=== PATIENT | male | born 1980 | race Caucasian/White ===

== ENCOUNTER 2024-03-06 15:39 | Emergency (ER) | payer OTHER, SELFPAY ==
[2024-03-06 15:42] VITALS: BP 154/77; PULSE 86; TEMP 36.8; O2SAT 99; BMI 31.6
--- NOTE | 2024-03-06 15:51 | ED_ITS ---
HPI - Skin/Abscess/Foreign Bdy General Chief complaint: Skin/Abscess/Foreign Body Stated complaint: Spider bite Time Seen by Provider: 03/06/24 15:47 Source: patient Mode of arrival: walk-in History of Present Illness HPI narrative: 43 year old male presents to the ED for an erythematous, raised, painful area to his left abdomen. Onset was 03/02/24. States it initially appeared as a small pimple or ingrown hair. Reports picking at the area. He developed increased pressure with a larger area of erythema yesterday. States today the center of the area became discolored and more painful. Denies feverr, chills, weakness. He is accompanied by family. Related Data Previous Rx's ?Medication ?Instructions ?Recorded cephalexin 500 mg capsule 500 mg PO Q6H 10 days #40 caps 03/06/24 doxycycline monohydrate 100 mg 100 mg PO BID 10 days #20 caps 03/06/24 capsule hydrocodone 5 mg-acetaminophen 325 1 tab PO Q6H PRN pain 2 days #8 03/06/24 mg tablet tabs Allergies Allergy/AdvReac Type Severity Reaction Status Date / Time No Known Drug Allergies Allergy Verified 03/06/24 15:45 Review of Systems ROS Constitutional Denies: fever or chills Cardiovascular Denies: chest pain Respiratory Denies: shortness of breath Gastrointestinal Denies: vomiting Integumentary/Breast Reports: redness, skin pain, skin tenderness, skin swelling and sores Neurological Denies: weakness in extremities Exam Constitutional Vital Signs, click to edit/add: Last Vital Signs Temp 98.2 F 03/06/24 15:42 Pulse 86 03/06/24 15:42 Resp 18 03/06/24 15:42 BP 154/77 H 03/06/24 15:42 Pulse Ox 99 03/06/24 15:42 O2 Del Method Room Air 03/06/24 15:42 Common normals: oriented x3 and alert General appearance: cooperative; not ill appearing Eye Common normals: conjunctivae normal and no scleral icterus Neck & C-Spine Common normals: supple Chest Chest: symmetrical chest wall rise Respiratory Common normals: normal respiratory effort Effort & inspection: able to speak in complete sentences Cardio Common normals: regular rate GI Other: Erythematous, firm, raised area to left abdomen. Center of the area is white with black area in very center. I and D indicated. Area tender. Neuro Common normals: oriented x3 Sensorium/orientation: awake and alert Speech: speech normal Gait (neuro): normal gait Course Vital Signs Vital signs: Vital Signs Temperature 98.2 F 03/06/24 15:42 Pulse Rate 86 03/06/24 15:42 Respiratory Rate 18 03/06/24 15:42 Blood Pressure 154/77 H 03/06/24 15:42 Pulse Oximetry 99 03/06/24 15:42 Oxygen Delivery Method Room Air 03/06/24 15:42 Temperature 98.2 F 03/06/24 15:42 Pulse Rate 86 03/06/24 15:42 Respiratory Rate 18 03/06/24 15:42 Blood Pressure 154/77 H 03/06/24 15:42 Pulse Oximetry 99 03/06/24 15:42 Oxygen Delivery Method Room Air 03/06/24 15:42 MDM - Skin/Abscess/Foreign Bdy MDM Narrative Medical decision making narrative: I and D was completed. LET was initially applied to the area and he was given Percocet prior to the procedure. He tolerated the procedure well. A dressing was applied. Packing removal in 24 hours. OARRS was reviewed. Prescriptions were provided for Doxycycline, Keflex, and [place]. Follow up with pcp for a recheck, further evaluation and treatment. Return precautions were discussed. Warm, moist compresses were discussed. He was discharged to family. Differential Diagnosis Differential diagnosis: Likely abscess of skin or subcutaneous tissue and cellulitis Medical Records Attestation: I reviewed the patient's medical records. Discharge Plan Discharge Stand Alone Forms: Portal Instructions Chief Complaint: Skin/Abscess/Foreign Body Clinical Impression: Abscess of skin or subcutaneous tissue Patient Disposition: Home, Self-Care Time of Disposition Decision: 17:12 Condition: Good Mode of Transportation: Private Vehicle Prescriptions / Home Meds: New doxycycline monohydrate 100 mg capsule 100 mg PO BID 10 Days Qty: 20 0RF cephalexin 500 mg capsule 500 mg PO Q6H 10 Days Qty: 40 0RF hydrocodone-acetaminophen 5-325 mg tablet 1 tab PO Q6H PRN (Reason: pain) 2 Days Qty: 8 0RF Print Language: Slovenian Instructions: Abscess (ED), Abscess Incision and Drainage (DC) Additional Instructions: Return to the ER for new or worsening symptoms. The packing needs to be removed in 24 hours. You may return to the ER for removal. If you feel comfortable you may remove the packing at home. Take the antibiotics as directed to completion. Apply warm, moist compresses as discussed. Referrals: Physician,Non-Staff, MD [Primary Care Provider] - 1 week Discharge Date/Time: 03/06/24 17:46 Procedures ED ID Incision & Drainage I&D Type: abcess Abscess Simple/Multiple: simple/single Site: abdomen Side (if applicable): left Sedation/analgesia: none Anesthetic used: without epi Technique: incised with #11 blade Amount of fluid (mL): 3 Irrigation: Yes Packing used: iodoform
[2024-03-06] MEDS: OXYCODONE HCL/ACETAMINOPHEN 5MG/325MG 1 TAB PO (16:03)
[2024-03-06] MEDS: LIDOCAINE/EPINEPHRINE/TETRACAINE 3 ML GEL.PF.APP TOPICAL (16:03)
[2024-03-06] MEDS: LIDOCAINE HCL 1% 100 MG/10 ML MDV INJ (16:03)
[2024-03-06] MEDS: CEPHALEXIN 500 MG CAPSULE PO (17:27)
[2024-03-06] MEDS: DOXYCYCLINE MONOHYDRATE 100 MG CAPSULE PO (17:27)
== END 2024-03-06 17:46 | disposition home or self-care (01) ==
PROVIDERS: Emergency Provider Emergency Medicine
DX: L02.211 Cutaneous abscess of abdominal wall (principal); B95.62 Methicillin resistant Staphylococcus aureus infection as the cause of diseases classified elsewhere
CPT/HCPCS: 10060; 87070; 87150; 87186; 99284

== ENCOUNTER 2024-04-22 18:47 | Emergency (ER) | payer OTHER, SELFPAY ==
[2024-04-22 19:03] VITALS: BP 160/90; PULSE 69; O2SAT 99; BMI 33.0
[2024-04-22 19:17] VITALS: TEMP 36.6
[2024-04-22] MEDS: LIDOCAINE HCL 1% 100 MG/10 ML MDV INJ (20:31)
--- NOTE | 2024-04-22 20:32 | ED_ITS ---
HPI - Skin/Abscess/Foreign Bdy General Chief complaint: Skin/Abscess/Foreign Body Stated complaint: Lump Time Seen by Provider: 04/22/24 20:03 Source: patient Mode of arrival: walk-in Limitations: no limitations History of Present Illness HPI narrative: 43-year-old male presents to the emergency department for a chief complaint of painful raised red area on the right side of his abdomen. He had a similar finding of about a month ago and it had to be incised and drained. This 1 is not as large and it started 2 days ago. He popped it and a small amount of pus came out. Related Data Previous Rx's ?Medication ?Instructions ?Recorded cephalexin 500 mg capsule 500 mg PO QID 10 days #40 caps 04/22/24 hydrocodone 5 mg-acetaminophen 325 1 tab PO Q6H PRN pain 4 days #14 04/22/24 mg tablet tabs sulfamethoxazole 800 1 tab PO BID 10 days #20 tabs 04/22/24 mg-trimethoprim 160 mg tablet (Bactrim DS) Allergies Allergy/AdvReac Type Severity Reaction Status Date / Time No Known Drug Allergies Allergy Verified 04/22/24 19:08 Review of Systems ROS Narrative A ten point review of systems is negative except as noted above. Exam Narrative Exam Narrative: Nurses note and vital signs reviewed and patient is not hypoxic. General: The patient appears well and in no apparent distress. Patient is resting comfortably on cart. Skin: Warm, dry, no pallor noted. There is no rash noted. Head: Normocephalic, atraumatic Eye: Normal conjunctiva, no drainage Ears, Nose, Mouth, and Throat: oral mucosa is moist. Nares patent. Cardiovascular: Regular Rate and Rhythm Respiratory: Patient is in no distress, no accessory muscle use GI: On the right side of the abdomen is an erythematous area which is quite firm and is approximately 2 inches x 1 inches in diameter. At the center is a raised white area. Musculoskeletal: No joint swelling Neurological: Awake and alert Psychiatric: Cooperative Constitutional Vital Signs, click to edit/add: Last Vital Signs Temp 98 F 04/22/24 19:17 Pulse 69 04/22/24 19:03 Resp 18 04/22/24 19:03 BP 160/90 H 04/22/24 19:03 Pulse Ox 99 04/22/24 19:03 O2 Del Method Room Air 04/22/24 19:03 Course Vital Signs Vital signs: Vital Signs Pulse Rate 69 04/22/24 19:03 Respiratory Rate 18 04/22/24 19:03 Blood Pressure 160/90 H 04/22/24 19:03 Pulse Oximetry 99 04/22/24 19:03 Oxygen Delivery Method Room Air 04/22/24 19:03 Temperature 98 F 04/22/24 19:17 Pulse Rate 69 04/22/24 19:03 Respiratory Rate 18 04/22/24 19:03 Blood Pressure 160/90 H 04/22/24 19:03 Pulse Oximetry 99 04/22/24 19:03 Oxygen Delivery Method Room Air 04/22/24 19:03 MDM - Skin/Abscess/Foreign Bdy MDM Narrative Medical decision making narrative: He is prescribed Bactrim and Keflex as well as [place]. Warm soaks were recommended 4 times a day. Treatment diagnosis and follow-up were discussed with the patient. Differential Diagnosis Differential diagnosis: Likely abscess of skin or subcutaneous tissue and other (Cellulitis) Discharge Plan Discharge Stand Alone Forms: Portal Instructions Chief Complaint: Skin/Abscess/Foreign Body Clinical Impression: Abscess of skin or subcutaneous tissue Patient Disposition: Home, Self-Care Time of Disposition Decision: 20:29 Condition: Good Mode of Transportation: Private Vehicle Prescriptions / Home Meds: New sulfamethoxazole-trimethoprim [Bactrim DS] 800-160 mg tablet 1 tab PO BID 10 Days Qty: 20 0RF cephalexin 500 mg capsule 500 mg PO QID 10 Days Qty: 40 0RF hydrocodone-acetaminophen 5-325 mg tablet 1 tab PO Q6H PRN (Reason: pain) 4 Days Qty: 14 0RF Print Language: Persian Instructions: Abscess (ED) Additional Instructions: Warm compress for 15 minutes 4 times a day Referrals: Physician,Non-Staff, MD [Primary Care Provider] - 1 week Procedures ED Procedure Instructions Procedures Procedures: The following procedure was performed by me. Local infiltration was carried out with 1% lidocaine without epinephrine. The area was prepped with Betadine x 3 and draped sterilely. Using a #11 blade the abscess was incised and a very minimal amount of purulent drainage was extracted. No further purulent drainage could be located. Dressing applied. He tolerated the procedure well.
[2024-04-22] MEDS: SULFAMETHOXAZOLE/TRIMETHOPRIM 800-160 MG TABLET 1 TAB PO (20:46)
[2024-04-22] MEDS: CEPHALEXIN 500 MG CAPSULE PO (20:46)
== END 2024-04-22 20:52 | disposition home or self-care (01) ==
PROVIDERS: Emergency Provider Emergency Medicine
DX: L02.211 Cutaneous abscess of abdominal wall (principal)
CPT/HCPCS: 10060; 99283